=== PATIENT | male | born 1985 | race Caucasian/White ===

== ENCOUNTER 2020-08-31 13:40 | Emergency (ER) | payer OTHER, SELFPAY ==
[2020-08-31 13:45] VITALS: BP 115/73; PULSE 86; RESP 20; TEMP 35.8; O2SAT 99
--- NOTE | 2020-08-31 14:54 | ED.GENADULT ---
HPI - General Adult General Chief complaint: Allergic Reaction Stated complaint: allergic reaction/hives Time Seen by Provider: 08/31/20 14:33 History of Present Illness HPI narrative: Patient is a 35-year-old male who comes into the ED today complaining of hives. Patient reports that for the last 5 days he has been having a rash that he believes is hives, says it is small circles and he first noticed that along his beltline but now notices it in all of his extremities. He says that it seems to get worse with pressure such as tight fitting clothing or even sitting down on the toilet. It is not related to any activity or oral intake. No new medicines. He denies any other symptoms including fevers, nausea vomiting or any other systemic symptoms. No previous history of similar symptoms. He went to an urgent care a few days ago and was prescribed steroid but says that this made his tongue swell so he stopped using the steroid. He is using Benadryl and that does seem to help with his rash. He says that the rash was pretty severe upon arrival to ED but currently is gone. Notes that he suffered a tick bite about 2 weeks prior to onset of rash. Says that he was in [place] and he went hiking and the next day he noticed a tick on his right leg that was removed. There was no rash around that site. Related Data Allergies Allergy/AdvReac Type Severity Reaction Status Date / Time prednisone Allergy Swelling Verified 08/31/20 13:48 of Lip/Tongue/Throat Review of Systems Constitutional: Constitutional: Reports as per HPI, Denies fever(s), Denies night sweats and Denies weakness Cardiovascular: Cardiovascular: Denies chest pain, Denies edema, Denies leg edema, Denies dyspnea and Denies orthopnea Respiratory: Respiratory: Denies cough and Denies dyspnea Gastrointestinal: Gastrointestinal: Denies abdominal pain, Denies constipation, Denies diarrhea, Denies nausea and Denies vomiting Musculoskeletal: Musculoskeletal: Denies abnormal gait, Denies back pain, Denies numbness and Denies tingling Integumentary/Breasts: Skin/Breast: Reports as per HPI Neurologic: Denies Abnormal speech present, Denies abnormal gait, Denies numbness, Denies tingling and Denies weakness Psychiatric: Psychiatric: Denies homicidal ideation and Denies suicidal ideation Allergic/Immunologic: Allergic/Immunologic: Reports as per HPI Exam Const: General: cooperative, healthy appearing, comfortable, no acute distress, well developed, alert, awake and Physically active Orientation/consciousness: patient oriented x3 Other: Pleasant calm well-appearing, no distress HENMT: Head: normal to inspection, normocephalic and atraumatic Ears: external ears normal General nose exam: Normal external nose present Other: Oropharynx clear. Tongue normal. Eyes: General: appearance normal, both eyes and all related structures Pupils: Equal, round and reactive pupils present EOM: EOMs intact bilaterally Neck: Neck: normal visual inspection Chest: Chest palpation & inspection: normal inspection of the chest and no tenderness Resp: Effort & Inspection: normal respiratory effort and able to speak in complete sentences Auscultation: clear to auscultation bilaterally Cardio: Rate: regular rate Rhythm: regular rhythm GI: Inspection: normal to inspection GI Palp: No abdominal tenderness : General: Yes no CVA tenderness Back/Spine/Pelvis: Back: no CVA tenderness Skin: General skin exam: normal color and no rashes or lesions noted Lesions: no lesions Other: There is a scattered blanchable maculopapular rash over the left lower extremity. Neuro: General: patient oriented x3, no focal motor deficits and CN's II-XI intact bilaterally Cranial nerves: Yes Equal, round and reactive pupils present Speech: No Abnormal speech present Extrem: General: normal to inspection and full ROM Psych: Appearance: grossly normal and well kempt Mental Status: mental status grossly normal
[2020-08-31 15:28] LABS: Basophils Percent Auto 0.4 % (0.2-1.2); Eosinophils Absolute Auto 0.1 K/mm3 (0-0.3); Eosinophils Percent Auto 1.1 % (0-4.4); Hematocrit 52.3 % (42.0-52.0); Hemoglobin 17.9 g/dL (14.0-18.0); Immature Granulocyte Absolute 0.03 K/mm3 (0.00-0.031); Immature Granulocyte Percent A 0.3 % (0-0.5); Lymphocytes Percent Auto 36.8 % (18.3-44.2); Mean Corpuscular HGB Conc 34.2 g/dl (32-36); Mean Corpuscular Hemoglobin 30.8 pg (26-34); Mean Corpuscular Volume 89.9 fl (80-100); Mean Platelet Volume 9.7 fl (7.4-10.4); Monocytes Absolute Auto 0.7 K/mm3 (0.1-0.6); Monocytes Percent Auto 7.1 % (2.6-8.5); Neutrophils Absolute Auto 5.2 K/mm3 (1.3-6.7); Neutrophils Percent Auto 54.3 % (45.5-73.1); Platelet Count Result 264 k/mm3 (150-375); Red Blood Count 5.82 M/mm3 (4.6-6.20); Red Cell Distribution Width 13.2 % (11.5-14.5); White Blood Count 9.5 K/mm3 (4.5-10.0)
[2020-08-31] MEDS: FAMOTIDINE 20 MG/2 ML VIAL IV PUSH (15:31)
[2020-08-31 15:39] LABS: Anion Gap 8 mmol/L (8-16); Blood Urea Nitrogen 27 mg/dL (9-20); Calcium 8.7 mg/dL (8.4-10.2); Carbon Dioxide 29 mmol/L (22-30); Chloride 102 mmol/L (98-107); Estimated CRCL calculation 84 ml/min; Estimated Glomerular Filt Rate > 60; Glucose 185 mg/dL (75-110); Potassium 3.5 mmol/L (3.4-5.0); Sodium 139 mmol/L (137-145)
--- NOTE | 2020-08-31 15:40 | PC.NURSE ---
Called Kwame silveira, added on Rickettsia DNA [id number]
[2020-08-31 16:50] VITALS: BP 126/78; PULSE 78; RESP 18; O2SAT 99
[2020-09-03 22:32] LABS: Rickettsia rickettsii DNA, PCR NOT DETECTED
== END 2020-08-31 16:51 | disposition home or self-care (01) ==
PROVIDERS: Physician Assistant Medical; Emergency Provider Emergency Medicine; PCP Emergency Medicine
DX: L50.9 Urticaria, unspecified (principal); R21 Rash and other nonspecific skin eruption
CPT/HCPCS: 36415; 80048; 85025; 87798; 96374; 99284